=== PATIENT | female | born 1960 | race Caucasian/White ===

== ENCOUNTER 2018-12-22 13:54 | Inpatient (IN) ==
--- NOTE | 2018-12-22 14:17 | PROVIDER DOCUMENTATION ---
HPI-Respiratory General - General Chief Complaint: Shortness of Breath Stated Complaint: COUGHING,CANT HEAR OUT OF RT EAR Time Seen by Provider: 12/22/18 14:14 Source: patient Allergies/Adverse Reactions: Patient Allergies Allergy/AdvReac Type Severity Reaction Status Date / Time No Known Allergies Allergy Verified 08/24/15 05:40 Home Medications: Home Medication List Medication Instructions Recorded Confirmed Last Taken Type Loratadine/Pse E.r. 12 Hr 1 each PO Q12HR #30 tablet 08/24/15 Unknown Rx [Claritin-D 12 Hr] Meclizine HCl [Antivert] 25 mg PO TID PRN #30 tablet 08/24/15 Unknown Rx Ondansetron [Ondansetron Odt] 4 mg PO Q4H PRN PRN #15 tab.rapdis 08/24/15 Unknown Rx - History of Present Illness-Resp Nature of Presenting Problem: reports having the cough and nasal right ear congestion last 2 days. no fever. taken mucinex medicine. in additona she is als having the sob. no history of l terri disease. not on any medication except mucines. associated with tiredness. Review of Systems - Adult - REVIEW OF SYSTEMS - ADULT Constitutional: reports: no symptoms reported Eyes: reports: no symptoms reported Ears, Nose, Mouth & Throat: reports: no symptoms reported Cardiovascular: reports: no symptoms reported Respiratory: reports: no symptoms reported Gastrointestinal: reports: no symptoms reported Genitourinary: reports: no symptoms reported Musculoskeletal: reports: no symptoms reported Integumentary: reports: no symptoms reported Neurological: reports: no symptoms reported Psychiatric: reports: no symptoms reported Endocrine: reports: no symptoms reported Hematologic/Lymphatic: reports: no symptoms reported Allergic/Immunologic: reports: no symptoms reported All Other Systems: Reviewed and Negative Past History - Adult - PAST MEDICAL HISTORY-ADULT Review of Records: reports: Old Records Reviewed, Nursing Assessment Review, Medications Reviewed, Social history reviewed & non-contributory. Major Childhood Illnesses: reports: denies history Cardiovascular: reports: hyperlipidemia Respiratory: reports: denies history Gastrointestinal: reports: denies history Obstetrical/Gynecological: reports: denies history Genitourinary: reports: kidney stones Musculoskeletal: denies: arthritis, chronic pain Neurological: reports: denies history Endocrine/Immune: reports: Diabetes Other Conditions: reports: denies history - PRIOR SURGERIES/PROCEDURES Surgical/Procedure History: reports: appendectomy - PRIOR HOSPITALIZATIONS Prior Hospitalizations: reports: none - IMMUNIZATION STATUS Childhood Immunizations: See Nurse Assessment Flu Vaccine: See Nurse Assessment - FAMILY HISTORY Family History: reviewed, not pertinent Physical Exam-General - PHYSICAL EXAM-ADULT Initial Vital Signs Reviewed: Yes - CONSTITUTIONAL General Appearance: appears well, alert, no apparent distress, other (4L oxygen) - EYES Eyes: PERRL/EOMI, pink conjunctivae - HEAD, EARS, NOSE, MOUTH & THROAT HENMT: other (dry mucous membrane, oral thrush) - NECK Neck: non-tender, full range of motion - RESPIRATORY Respiratory: chest non-tender, normal breath sounds, crackles - CARDIOVASCULAR Cardiovascular: normal peripheral pulses, tachycardia - GASTROINTESTINAL (ABDOMEN) Abdominal Exam: normal bowel sounds, non tender, soft - MUSCULOSKELETAL Back Exam: normal inspection, no CVA tenderness, no vertebral tenderness Extremity: normal range of motion, non-tender, normal gait Peripheral Pulses: radial (R): 2+, radial (L): 2+, dorsalis-pedis (R): 2+, dorsalis-pedis (L): 2+ - SKIN Integumentary: normal color, normal turgor, warm/dry - NEUROLOGIC Neurologic: grossly normal, no motor/sensory deficits - PSYCHIATRIC Psych/Mental Status: normal mood/affect, normal thought content, normal thought process, oriented x 3 Progress - PLAN OF CARE/RESULTS Progress/Plan/Lab Results: Vital Signs - 8 hr 12/22/18 13:59 12/22/18 14:08 12/22/18 14:31 Temperature 98.1 F Pulse Rate 116 H Respiratory Rate 22 Blood Pressure 113/66 123/97 O2 Sat by Pulse Oximetry 86 L 89 L 94 L 12/22/18 15:19 12/22/18 15:20 12/22/18 15:30 Temperature 102.9 F H Pulse Rate 106 H 103 H Respiratory Rate 24 32 H Blood Pressure O2 Sat by Pulse Oximetry 96 91 L 12/22/18 16:00 Temperature Pulse Rate 103 H Respiratory Rate 32 H Blood Pressure O2 Sat by Pulse Oximetry 89 L Laboratory Results - last 24 hr 12/22/18 12/22/18 12/22/18 14:22 14:22 14:22 WBC 11.56 H RBC 5.44 H Hgb 15.3 Hct 45.2 MCV 83.1 MCH 28.1 MCHC 33.8 RDW Std Deviation 13.4 Plt Count 281 MPV 10.4 Immature Gran % (Auto) 0.4 Neut % (Auto) 76.0 H Lymph % (Auto) 12.5 L Mayes % (Auto) 10.7 H Eos % (Auto) 0.1 Baso % (Auto) 0.3 Immature Gran # (Auto) 0.05 H Neut # (Auto) 8.77 H Lymph # (Auto) 1.45 Mayes # (Auto) 1.24 H Eos # (Auto) 0.01 Baso # (Auto) 0.04 PT 13.5 INR 0.96 PTT (Actin FS) 30.5 D-Dimer, Quantitative Specimen Type Sample Site pH pCO2 pO2 HCO3 Base Excess Oxyhemoglobin ABG O2 Sat (Calculated) ABG O2 Saturation ABG Carboxyhemoglobin ABG Methemoglobin Eliseo Test A-a O2 Difference Total Hemoglobin Lactate Liter Flow Blood Gas Modality FiO2 % Sodium 140 Potassium 5.0 Chloride 101 Carbon Dioxide 24 L Anion Gap 15 BUN 17 Creatinine 1.0 H Estimated GFR/1.73 m2 57 BUN/Creatinine Ratio 17 Glucose 169 H Calculated Osmolality 285 Calcium 9.3 Magnesium Total Bilirubin 0.44 AST 16 ALT 15 Alkaline Phosphatase 124 H Creatine Kinase 185 H Creatine Kinase Index 0.5 CK-MB (CK-2) 1.00 Troponin T Wlc-M-Wpybijohccx Pept Total Protein 7.5 Albumin 4.6 Globulin 2.9 Albumin/Globulin Ratio 1.6 Plasma Lactate Urine Source 12/22/18 12/22/18 12/22/18 14:22 14:22 14:22 WBC RBC Hgb Hct MCV MCH MCHC RDW Std Deviation Plt Count MPV Immature Gran % (Auto) Neut % (Auto) Lymph % (Auto) Mayes % (Auto) Eos % (Auto) Baso % (Auto) Immature Gran # (Auto) Neut # (Auto) Lymph # (Auto) Mayes # (Auto) Eos # (Auto) Baso # (Auto) PT INR PTT (Actin FS) D-Dimer, Quantitative Specimen Type Sample Site pH pCO2 pO2 HCO3 Base Excess Oxyhemoglobin ABG O2 Sat (Calculated) ABG O2 Saturation ABG Carboxyhemoglobin ABG Methemoglobin Eliseo Test A-a O2 Difference Total Hemoglobin Lactate Liter Flow Blood Gas Modality FiO2 % Sodium Potassium Chloride Carbon Dioxide Anion Gap BUN Creatinine Estimated GFR/1.73 m2 BUN/Creatinine Ratio Glucose Calculated Osmolality Calcium Magnesium Total Bilirubin AST ALT Alkaline Phosphatase Creatine Kinase Creatine Kinase Index CK-MB (CK-2) Troponin T < 0.010 Mxo-B-Pttrdxpyoeb Pept 67 Total Protein Albumin Globulin Albumin/Globulin Ratio Plasma Lactate 1.3 Urine Source 12/22/18 12/22/18 12/22/18 14:22 14:22 14:56 WBC RBC Hgb Hct MCV MCH MCHC RDW Std Deviation Plt Count MPV Immature Gran % (Auto) Neut % (Auto) Lymph % (Auto) Mayes % (Auto) Eos % (Auto) Baso % (Auto) Immature Gran # (Auto) Neut # (Auto) Lymph # (Auto) Mayes # (Auto) Eos # (Auto) Baso # (Auto) PT INR PTT (Actin FS) D-Dimer, Quantitative 0.42 Specimen Type ARTERIAL Sample Site L BRACHIAL pH 7.43 pCO2 34 L pO2 54 L HCO3 23.8 Base Excess -1.1 Oxyhemoglobin 88.3 L* ABG O2 Sat (Calculated) 18.5 ABG O2 Saturation 92.6 L ABG Carboxyhemoglobin 2.60 H ABG Methemoglobin 2.0 H Eliseo Test YES A-a O2 Difference 160.0 Total Hemoglobin 14.9 Lactate 0.80 Liter Flow 4.0 Blood Gas Modality CANNULA FiO2 % 36.0 Sodium Potassium Chloride Carbon Dioxide Anion Gap BUN Creatinine Estimated GFR/1.73 m2 BUN/Creatinine Ratio Glucose Calculated Osmolality Calcium Magnesium 1.9 Total Bilirubin AST ALT Alkaline Phosphatase Creatine Kinase Creatine Kinase Index CK-MB (CK-2) Troponin T Mme-U-Zobpigyfemm Pept Total Protein Albumin Globulin Albumin/Globulin Ratio Plasma Lactate Urine Source 12/22/18 15:42 WBC RBC Hgb Hct MCV MCH MCHC RDW Std Deviation Plt Count MPV Immature Gran % (Auto) Neut % (Auto) Lymph % (Auto) Mayes % (Auto) Eos % (Auto) Baso % (Auto) Immature Gran # (Auto) Neut # (Auto) Lymph # (Auto) Mayes # (Auto) Eos # (Auto) Baso # (Auto) PT INR PTT (Actin FS) D-Dimer, Quantitative Specimen Type Sample Site pH pCO2 pO2 HCO3 Base Excess Oxyhemoglobin ABG O2 Sat (Calculated) ABG O2 Saturation ABG Carboxyhemoglobin ABG Methemoglobin Eliseo Test A-a O2 Difference Total Hemoglobin Lactate Liter Flow Blood Gas Modality FiO2 % Sodium Potassium Chloride Carbon Dioxide Anion Gap BUN Creatinine Estimated GFR/1.73 m2 BUN/Creatinine Ratio Glucose Calculated Osmolality Calcium Magnesium Total Bilirubin AST ALT Alkaline Phosphatase Creatine Kinase Creatine Kinase Index CK-MB (CK-2) Troponin T Rky-Z-Rbrcqywgeyf Pept Total Protein Albumin Globulin Albumin/Globulin Ratio Plasma Lactate Urine Source CLEAN CATCH Orders Category Date Time Status Cardiac Monitoring DIRECTED Care 12/22/18 14:02 Active IV Insertion ORDERED Care 12/22/18 14:02 Completed Notify MD of + Sepsis Screen NOW Care 12/22/18 14:02 Active Notify Physician As Ordered Care 12/22/18 14:02 Active Oxygen Therapy- ED Nursing DIRECTED Care 12/22/18 14:28 Active Saline Loc NOW Care 12/22/18 14:28 Active CHEST-1 VIEW [RAD] Stat Exams 12/22/18 14:02 Completed ABG [RESP] Routine Lab 12/22/18 14:56 Completed BLOOD CULTURE [BLDCUL] Stat Lab 12/22/18 14:22 Results BNP [PRO B-NATRIURETIC PEPTIDE] Stat Lab 12/22/18 14:22 Completed CBC WITH DIFF [HEME] Stat Lab 12/22/18 14:22 Completed CK PROFILE [SP CHEM] Stat Lab 12/22/18 14:22 Completed COMPREHENSIVE METABOLIC PANEL [CHEM] Stat Lab 12/22/18 14:22 Completed D-DIMER [COAG] Stat Lab 12/22/18 14:22 Completed LACTATE, PLASMA [CHEM] Lab 12/22/18 17:15 Uncollected LACTATE, PLASMA [CHEM] Lab 12/22/18 20:15 Uncollected LACTATE, PLASMA [CHEM] Q3H Lab 12/22/18 14:22 Completed MAGNESIUM [CHEM] Stat Lab 12/22/18 14:22 Completed PROTIME WITH INR [COAG] Stat Lab 12/22/18 14:22 Completed PTT [COAG] Stat Lab 12/22/18 14:22 Completed TROPONIN T Stat Lab 12/22/18 14:22 Completed URINALYSIS W/POSS RFLX CULT [URINALYSIS] Stat Lab 12/22/18 15:42 Results 0.9% Sodium Chloride Inj [Ns] 1,000 ml Med 12/22/18 15:55 Active IV 250 mls/hr Acetaminophen [Tylenol] Med 12/22/18 15:25 Discontinued 500 mg PO NOW ONE Aspirin Med 12/22/18 14:27 Discontinued 325 mg PO NOW ONE Fluconazole [Diflucan] Med 12/22/18 16:11 Discontinued 200 mg PO NOW ONE BIPAP Stat Oth 12/22/18 15:16 Active CP/SOB/Palp >45 yrs of Age Stat Oth 12/22/18 14:27 Ordered Oxygen Device Stat Oth 12/22/18 14:02 Active EKG [EKG] Stat Ther 12/22/18 14:03 Ordered Result Diagrams: 12/22/18 14:22 12/22/18 14:22 - REASSESSMENT Reassessment #1 Time Reassessed: 15:27 (hypoxemia, tachycardia, pulmonary edema, will add bibap to increase oxygen level. will order dimer to screen for possible v/q mismatch) - CONSULTS/PCP/HOSPITALIST Notification #1 *Consult/PCP/Hospitalist*: Dr. Granda Time Discussed: 16:29 Consult Disposition: Admit (to [facility]) Departure - Departure Date of Disposition Decision: 12/22/18 Time of Disposition Decision: 16:29 DIAGNOSIS: Oral candidiasis, Hypoxemia, Pulmonary edema, TERRIE (acute kidney injury) Disposition: ADMITTED INPATIENT 09 Certified Medical Emergency: Emergent Condition: Stable Referrals and Follow-Ups: Tiff Granda MD [Primary Care Provider] - - Critical Care Note This patient required my direct & personal management of CC.: No Attestation - Physician/ TATIANA Attestation The physician spent face to face time with patient:: Yes Advanced Practice Provider documentation review:: Supervising physician onsite and consulted in the evaluation and care of this patient. The physician did have a face to face encounter with the patient.
[2018-12-22] MEDS ORDERED: ASPIRIN PO ONE (14:27)
--- NOTE | 2018-12-22 14:32 | Diag Imaging Result Doc PS360 ---
EXAM: CHEST-1 VIEW HISTORY: POSSIBLE SEPSIS TECHNIQUE: Chest single view COMPARISON: 06/11/2014 FINDINGS: The lungs are well expanded. The heart is mildly enlarged. The vessels are mildly distended. There are no infiltrates. No effusion identified. IMPRESSION: Mild pulmonary edema Electronically signed by Desmond Flores 12/22/2018 2:30 PM
[2018-12-22 14:52] LABS: BASO# 0.04 X1000 (0.0-0.2); BASO% 0.3 % (0.0-0.8); EOS# 0.01 X1000 (0.0-0.7); EOS% 0.1 % (0.0-10.0); HEMATOCRIT 45.2 % (37.0-47.0); HEMOGLOBIN 15.3 g/dL (12.0-16.0); IMM GRAN# 0.05 X1000 (0.0-0.04); IMM GRAN% 0.4 % (0.0-0.5); LYMPH# 1.45 X1000 (1.2-3.4); LYMPH% 12.5 % (20.5-51.1); MCH 28.1 PG (27-31); MCHC 33.8 g/dL (33-37); MCV 83.1 FL (81-99); MONO# 1.24 X1000 (0.11-0.59); MONO% 10.7 % (1.7-9.3); MPV 10.4 FL (7.4-10.4); NEUT# 8.77 X1000 (1.4-6.5); PLT 281 X1000 (130-400); RBC 5.44 XMIL (4.2-5.4); RDW 13.4 % (11.5-14.5); WBC 11.56 X1000 (4.8-10.8)
[2018-12-22 15:03] LABS: INR 0.96; PROTIME 13.5 Seconds (11.0-16.0)
[2018-12-22 15:04] LABS: PTT 30.5 Seconds (22.3-41.8)
[2018-12-22 15:05] LABS: ALLEN TEST YES; BE -1.1 mmoll (-3.0-3.0); BLOOD TYPE ARTERIAL; HCO3-(ACT) 23.8 mmoll (20.0-26.0); O2(CT) 18.5 mL/dL (15.0-23.0); PCO2(98.6) 34 mmHg (35-45); PO2(98.6) 54 mmHg (60-100); SAMPLE BLOOD; SAO2 92.6 % (95.0-100.0); THB 14.9 g/dL (11.5-17.4); pH(98.6) 7.43 (7.35-7.45)
[2018-12-22 15:06] LABS: MODALITY CANNULA; O2HB 88.3 % (95.0-99.0)
[2018-12-22 15:23] LABS: ALB/GLOB RATIO 1.6; ALBUMIN 4.6 g/dL (3.5-5.0); CALCIUM 9.3 mg/dL (8.8-10.2); TOTAL BILIRUBIN 0.44 mg/dL (0.20-1.00); TOTAL PROTEIN 7.5 g/dL (6.3-8.3)
[2018-12-22] MEDS ORDERED: TYLENOL PO ONE (15:25)
[2018-12-22 15:45] LABS: CK INDEX 0.5 (0.0-2.5)
[2018-12-22] MEDS ORDERED: NS 1,000 ML IV ONE (15:55)
[2018-12-22] MEDS ORDERED: DIFLUCAN PO ONE (16:11)
[2018-12-22 16:21] LABS: URINE SOURCE CLEAN CATCH
[2018-12-22 16:29] LABS: BILIRUBIN URINE NEGATIVE (NEGATIVE); BLOOD URINE TRACE (NEGATIVE); COLOR YELLOW; GLUCOSE URINE TRACE mg/dL (NEGATIVE); KETONE URINE 10 mg/dL (NEGATIVE); LEUKOCYTES URINE NEGATIVE (NEGATIVE); NITRITE URINE NEGATIVE (NEGATIVE); PROTEIN URINE 200 mg/dL (NEGATIVE); SP GRAVITY URINE 1.024; TURBIDITY URINE CLEAR (CLEAR); UROBILINOGEN URINE 2 mg/dL (NORMAL)
[2018-12-22 16:30] LABS: UR EPITHELIAL CELLS <10 /HPF (<10); URINE BACTERIA NEGATIVE /HPF; URINE RBC <10 /HPF (<10); URINE WBC <10 /HPF (<10)
[2018-12-22] MEDS ORDERED: ROCEPHIN 1 GM in NS 50 ML IV ONE (17:19)
--- NOTE | 2018-12-22 18:22 | ED EKG INTERP ---
This chart was entered by Jazlyn Gutierrez Scribe, acting as scribe for Savannah Mazariegos MD. EKG Interpretation - EKG Time of EKG reading by physician:: 14:10 EKG Read and Signed by:: Savannah Mazariegos EKG Interpretation (*Must complete 3 of following elements*): Abnormal Rate: 106 Rhythm: Sinus tach [place]: normal QRS: normal CO Interval: normal ST Wave: non-specific ST changes Attestation - Physician/ TATIANA Attestation Patient care was provided by Advanced Practice Provider:: No The physician spent face to face time with patient:: Yes Advanced Practice Provider documentation review:: Supervising physician onsite and consulted in the evaluation and care of this patient. The physician did have a face to face encounter with the patient. This chart was documented by the indicated scribe, (Jazlyn Gutierrez Scribe) and accurately reflects the services I performed and decisions made by me, Savannah Mazariegos MD, as attested by the provider's signature.
[2018-12-22] MEDS: LEVAQUIN 500 MG/D5W 500 MG/100 ML IVPB IV SCH (18:41)
[2018-12-22] MEDS: LOVENOX SUBQ SCH (18:41)
[2018-12-22] MEDS: NS 1,000 ML IV SCH (18:42)
[2018-12-22] MEDS: PEPCID IV SCH (18:44)
[2018-12-22] MEDS: ROBITUSSIN-DM PO PRN (19:13)
--- NOTE | 2018-12-22 19:44 | HISTORY AND PHYSICAL ---
CHIEF COMPLAINT: Shortness of breath, cough, wheezing. HISTORY OF PRESENT ILLNESS: She is a 58-year-old white female. She was not seen in my office for a while. She has been under workman's compensation injury since September. The patient has had multiple surgeries; injuries to the left knee, left elbow, right shoulder. Anyhow, she is still smoking. She was very hypoxic, placed on BiPAP. No chest pain. No pedal edema. Basically admitted to the hospital for acute COPD exacerbation with hypoxemia. She also has borderline blood sugar. Oral thrush noted. For all these reasons, she has been admitted in [facility] for further workup. I did see the chest x-ray, ER workup. Currently the patient is off BiPAP in the [facility]. The patient is not in respiratory distress. PAST MEDICAL HISTORY: Acid reflux disease, hyperlipidemia, glucose intolerance, metabolic syndrome, kidney stones. PAST SURGICAL HISTORY: Breast lumpectomy, benign, on the left side; appendectomy; complete hysterectomy; laparotomy, cystocele repair; right shoulder replacement; left elbow surgery; left knee replacement. ALLERGIES: Not known. MEDICATIONS: In my office, supposed to take medicines are Prilosec 40 daily, niacin 500 two tablets daily, metformin 500 daily, gabapentin 300 t.i.d. SOCIAL HISTORY: Lives in [place]. Continues to smoke. No alcohol. Working for [employer]. Single with one child. FAMILY HISTORY: Father of MVA at 43. Mother of Alzheimer disease and diabetes. HEALTH MAINTENANCE: Not up-to-date. Last mammography 2013. REVIEW OF SYSTEMS: HEENT: No headache, no vision problem. No earache. No sore throat. Rash on the mouth. No neck pain. Cardiopulmonary: Shortness of breath, cough and wheezing. No PND. No orthopnea. No swelling of legs. GI: No nausea, vomiting, abdominal pain. : No history of hesitancy, frequency or dysuria. No focal symptoms or weakness. PHYSICAL EXAMINATION: VITAL SIGNS: Temperature is low-grade fever, pulse 94, blood pressure is 144/71. Five feet 4 inches, 180 pounds. HEENT: Atraumatic, normocephalic. Pupils equal, reactive to light. Oral thrush noted. TMs are normal. Nose and throat congested. Postnasal drainage. NECK: Supple. No lymphadenopathy. CHEST: Bilateral air entry, wheezing. HEART: Distant heart sounds. BREASTS: Exam deferred. ABDOMEN: Belly is soft, nontender. Good bowel sounds. Midline abdominal scar present. EXTREMITIES: Left knee scar present. No peripheral edema. No signs of gangrene. NEUROLOGIC: No obvious neurological deficits. LABORATORY DATA: CBC: White cell count 11.5, hematocrit 45, platelets 281,000. PT/INR is normal. D-dimer is normal. ABG: PH is 7.43, pCO2 is 34, pO2 is 54, bicarbonate 23.8, oxyhemoglobin 88.3, carboxyhemoglobin 2.6 on 36%. SMA 7 is normal. Sugar is 169. CK was high, but MB index, troponin and proBNP were normal. Plasma lactate was normal. DIAGNOSTIC DATA: Chest x-ray: Borderline cardiomegaly. Stable chest. No infiltrates. ASSESSMENT AND PLAN: 1. A 58-year-old white female admitted to the hospital with acute chronic obstructive pulmonary disease exacerbation. Plan is oxygen as needed, bronchodilators. We will start with Levaquin and ceftriaxone. We will use judicious use of steroids. 2. Deep venous thrombosis and gastrointestinal prophylaxis with Lovenox and Pepcid. 3. Oral thrush. Intravenous Diflucan. 4. Intravenous fluids. 5. ProBNP, D-dimers were normal. We will check the electrocardiogram in the morning. Gentle hydration. 6. Glucose intolerance. We will follow up on A1c. Sliding scale with insulin coverage. 7. Nicotine cessation programs. 8. Initiate vaccination protocol prior to the discharge. Follow up. cc: David Granda MD
[2018-12-22] MEDS: HUMULIN R SUBQ SCH (21:34)
[2018-12-22] MEDS: NICODERM PATCH TD SCH (22:23)
[2018-12-22] MEDS: TESSALON PO PRN (22:23)
[2018-12-22] MEDS: TYLENOL PO PRN (22:23)
[2018-12-22] MEDS: ZOFRAN IV PRN (22:28)
[2018-12-23] MEDS: ROBITUSSIN-DM PO PRN ×2 (00:52→09:03)
[2018-12-23] MEDS: NS 1,000 ML IV SCH ×4 (03:32→21:32)
[2018-12-23 03:39] LABS: ALLEN TEST YES; BE -2.6 mmoll (-3.0-3.0); BLOOD TYPE ARTERIAL; HCO3-(ACT) 22.7 mmoll (20.0-26.0); METHB 2.1 % (0.0-1.5); O2(CT) 17.5 mL/dL (15.0-23.0); PCO2(98.6) 43 mmHg (35-45); PO2(98.6) 59 mmHg (60-100); SAMPLE BLOOD; THB 13.9 g/dL (11.5-17.4); pH(98.6) 7.34 (7.35-7.45)
[2018-12-23 03:46] LABS: MODALITY CANNULA
[2018-12-23 03:47] LABS: O2HB 89.5 % (95.0-99.0)
[2018-12-23] MEDS: ZOFRAN IV PRN ×3 (05:04→22:38)
[2018-12-23 05:55] LABS: BASO# 0.03 X1000 (0.0-0.2); BASO% 0.3 % (0.0-0.8); EOS# 0.01 X1000 (0.0-0.7); EOS% 0.1 % (0.0-10.0); HEMATOCRIT 41.7 % (37.0-47.0); IMM GRAN# 0.04 X1000 (0.0-0.04); IMM GRAN% 0.4 % (0.0-0.5); LYMPH# 1.99 X1000 (1.2-3.4); LYMPH% 20.3 % (20.5-51.1); MCH 28.4 PG (27-31); MCHC 33.6 g/dL (33-37); MCV 84.6 FL (81-99); MONO# 1.16 X1000 (0.11-0.59); MONO% 11.8 % (1.7-9.3); MPV 10.2 FL (7.4-10.4); NEUT# 6.58 X1000 (1.4-6.5); NEUT% 67.1 % (42.2-75.2); PLT 243 X1000 (130-400); RBC 4.93 XMIL (4.2-5.4); RDW 13.5 % (11.5-14.5); WBC 9.81 X1000 (4.8-10.8)
[2018-12-23] MEDS: PEPCID IV SCH ×2 (06:18→18:15)
[2018-12-23] MEDS: TESSALON PO PRN ×3 (06:18→22:38)
[2018-12-23] MEDS: HUMULIN R SUBQ SCH ×4 (06:19→20:55)
[2018-12-23 06:38] LABS: HEMOGLOBIN A1C 8.2 % (4.8-6.0)
[2018-12-23 06:47] LABS: AGAP 11; BUN 18 mg/dL (8-22); CALCIUM 8.7 mg/dL (8.8-10.2); CHLORIDE 104 mmol/L (98-107); CK PROFILE 250 U/L (24-173); COSMO 281; CREATININE 0.8 mg/dL (0.5-0.9); ESTIMATED GFR > 60; GLUCOSE 134 mg/dL (70-104); POTASSIUM 4.1 mmol/L (3.5-5.1); SODIUM 139 mmol/L (136-145); TCO2 24 mmol/L (25-35)
[2018-12-23 08:22] LABS: CK INDEX 0.9 (0.0-2.5); CK-MB 2.35 ng/mL (0.0-5.0)
[2018-12-23] MEDS: NICODERM PATCH TD SCH (09:01)
[2018-12-23] MEDS: DUONEB (A & A) INH PRN ×2 (09:22→16:17)
[2018-12-23] MEDS ORDERED: BREO ELLIPTA 100/25 MCG INH INH ONE (12:47)
--- NOTE | 2018-12-23 14:29 | PROGRESS NOTE ---
DATE: 12/23/2018 SUBJECTIVE: The patient is still shortness of breath. No chest pain. Blood sugars are running high. She has oral thrush. EXAMINATION: Vital Signs: Temp Is 98, pulse is 92, blood pressure is stable. HEENT: Oral thrush. Crackles on the left side of the chest. Heart: Sounds are regular. Abdomen: Belly is soft, obese. Neurologic: No neurological deficits noted. LABORATORY: CBC: White cell count 9, hematocrit 41, platelets 243,000 ABG: pH is 7.34, pCO2 43, PO2 59, on 40%. SMA-7 is normal. A1c 8.2. Cardiac enzymes were normal. D-dimer is normal. ASSESSMENT AND PLAN: 1. Acute COPD exacerbation with possible pneumonia on the left upper lobe and repeat the chest x- ray. Currently receiving the antibiotics with Levaquin oxygen, bronchodilators. I am going to Add Breo and Spiriva. 2. Oral thrush, IV Diflucan. 3. Cough. She is on Robitussin DM and Tessalon Perles as directed. 4. DVT and GI prophylaxis as per order sheet. 5. Type 2 diabetes. We will start on metformin along with B12 tablets. 6. Multiple workman's comp injury, stable. 7. Tobacco abuse. Quit smoking. 8. Decrease IV fluids 50 mL/h and then repeat the chest x-ray in the morning. LEVEL OF DOCUMENTATION: 25 minutes. cc: David Granda MD
[2018-12-23] MEDS: ROCEPHIN 1 GM in NS 50 ML IV SCH ×2 (16:25→17:34)
[2018-12-23] MEDS: TYLENOL PO PRN (16:26)
[2018-12-23] MEDS: GLUCOPHAGE PO SCH (16:26)
[2018-12-23] MEDS: LEVAQUIN 500 MG/D5W 500 MG/100 ML IVPB IV SCH (18:15)
[2018-12-23] MEDS: DIFLUCAN 100 MG/NS 100 MG/50 ML IVPB IV SCH (18:15)
[2018-12-23] MEDS: LOVENOX SUBQ SCH (18:15)
[2018-12-24 05:04] LABS: ALLEN TEST YES; BE -2.4 mmoll (-3.0-3.0); BLOOD TYPE ARTERIAL; O2HB 95.1 % (95.0-99.0); PCO2(98.6) 42 mmHg (35-45); PO2(98.6) 89 mmHg (60-100); SAMPLE BLOOD; SAO2 98.4 % (95.0-100.0); THB 16.4 g/dL (11.5-17.4); pH(98.6) 7.35 (7.35-7.45)
[2018-12-24 05:05] LABS: MODALITY VENTIMASK
[2018-12-24] MEDS: PEPCID IV SCH ×2 (05:56→18:18)
[2018-12-24] MEDS: TYLENOL PO PRN ×2 (05:56→16:40)
[2018-12-24] MEDS: NS 1,000 ML IV SCH ×2 (06:14→21:25)
[2018-12-24] MEDS: TESSALON PO PRN (06:19)
[2018-12-24] MEDS: HUMULIN R SUBQ SCH ×4 (06:19→21:27)
[2018-12-24] MEDS: DUONEB (A & A) INH PRN ×2 (08:14→15:13)
[2018-12-24] MEDS: BREO ELLIPTA 100/25 MCG INH INH SCH (08:14)
[2018-12-24] MEDS: SPIRIVA INH SCH (08:14)
--- NOTE | 2018-12-24 08:15 | Diag Imaging Result Doc PS360 ---
EXAM: CHEST-2 VIEWS HISTORY: hypoxia TECHNIQUE: Chest two views COMPARISON: 12/22/2018 FINDINGS: The lungs are well expanded. The heart is not enlarged. The vessels are mildly distended. There are infiltrates in the right lung on the current exam. No pleural effusions. IMPRESSION: Interval worsening with infiltrates in the right lung and mild pulmonary edema. Electronically signed by Desmond Flores 12/24/2018 8:12 AM
[2018-12-24] MEDS: NICODERM PATCH TD SCH (09:06)
[2018-12-24] MEDS: GLUCOPHAGE PO SCH ×2 (09:06→16:39)
[2018-12-24] MEDS: ROBITUSSIN-AC PO PRN ×2 (09:47→20:01)
--- NOTE | 2018-12-24 10:45 | PROGRESS NOTE ---
DATE: 12/24/2018 Ms Wills, who is a 58-year-old white female, is admitted with pneumonia. X-ray of the right lung shows worsening of the pneumonia. There is some congestion on the chest. Her vital signs, however, are stable. She is on Levaquin as well as Rocephin and arterial blood gases are satisfactory. She has persistent cough. The Tessalon Perles and Robitussin DM are not working. We will start with some guaifenesin and codeine. Overall, condition is otherwise unchanged. -0 cc: MD David Santana MD
[2018-12-24] MEDS: ZOFRAN IV PRN ×2 (13:45→20:01)
[2018-12-24] MEDS: ROCEPHIN 1 GM in NS 50 ML IV SCH (16:39)
[2018-12-24] MEDS: DIFLUCAN 100 MG/NS 100 MG/50 ML IVPB IV SCH (17:46)
[2018-12-24] MEDS: LEVAQUIN 500 MG/D5W 500 MG/100 ML IVPB IV SCH (18:17)
[2018-12-24] MEDS: LOVENOX SUBQ SCH (18:18)
[2018-12-24] MEDS: PHENERGAN IV PRN (21:25)
[2018-12-24] MEDS: SODIUM CHLORIDE 0.9% INJ PRN (21:25)
[2018-12-25] MEDS: NS 1,000 ML IV SCH ×4 (03:24→23:30)
[2018-12-25] MEDS: PEPCID IV SCH ×2 (06:41→18:13)
[2018-12-25] MEDS: SODIUM CHLORIDE 0.9% INJ SCH ×2 (06:42→18:16)
[2018-12-25] MEDS: HUMULIN R SUBQ SCH ×4 (06:44→20:45)
--- NOTE | 2018-12-25 07:33 | EKG Report ---
Test Performed on : 12/23/2018 06:17:04 AM Test Reason : cp Blood Pressure : / mmHG Vent. Rate : 080 BPM Atrial Rate : 080 BPM P-R Int : 132 ms QRS Dur : 088 ms QT Int : 388 ms P-R-T Axes : 067 040 033 degrees QTc Int : 447 ms Normal sinus rhythm. Normal ECG When compared with ECG of 22-DEC-2018 14:10, (Unconfirmed) No significant change was found Confirmed by Yoan GREENE, Laurent Escobedo ([id number]) on 12/25/2018 12:41:35 PM
--- NOTE | 2018-12-25 07:44 | EKG Report ---
Test Performed on : 12/22/2018 2:10:14 PM Test Reason : TACHYCARDIA, SOB Blood Pressure : / mmHG Vent. Rate : 106 BPM Atrial Rate : 106 BPM P-R Int : 124 ms QRS Dur : 086 ms QT Int : 350 ms P-R-T Axes : 060 042 032 degrees QTc Int : 464 ms Sinus tachycardia. Nonspecific ST abnormality Abnormal ECG When compared with ECG of 24-AUG-2015 05:53, No significant change was found Unconfirmed Result
[2018-12-25] MEDS: SOLU-MEDROL IV SCH (08:59)
[2018-12-25] MEDS: NICODERM PATCH TD SCH (08:59)
[2018-12-25] MEDS: GLUCOPHAGE PO SCH ×2 (08:59→17:23)
[2018-12-25] MEDS: MUCINEX PO SCH ×2 (08:59→20:45)
[2018-12-25] MEDS: BREO ELLIPTA 100/25 MCG INH INH SCH (09:36)
[2018-12-25] MEDS: DUONEB (A & A) INH PRN ×3 (09:36→20:58)
[2018-12-25] MEDS: SPIRIVA INH SCH (09:36)
[2018-12-25] MEDS: ZOFRAN IV PRN (15:42)
[2018-12-25] MEDS: TESSALON PO PRN (16:29)
[2018-12-25] MEDS: ROCEPHIN 1 GM in NS 50 ML IV SCH (17:23)
[2018-12-25] MEDS: LOVENOX SUBQ SCH (18:13)
[2018-12-25] MEDS: DIFLUCAN 100 MG/NS 100 MG/50 ML IVPB IV SCH (18:13)
[2018-12-25] MEDS: LEVAQUIN 500 MG/D5W 500 MG/100 ML IVPB IV SCH (18:48)
[2018-12-25] MEDS: PHENERGAN IV PRN (20:46)
[2018-12-25] MEDS: SODIUM CHLORIDE 0.9% INJ PRN (20:46)
--- NOTE | 2018-12-25 21:33 | PROGRESS NOTE ---
DATE: 12/25/2018 SUBJECTIVE: The patient is not getting any better. Still productive cough, chest x-ray, right upper lobe infiltrate and oral thrush is improving. OBJECTIVE: Vital Signs: Temp 99.2, pulse 73, blood pressure 146/80. HEENT: On Ventimask, coughing. It is a productive cough and crackles on both sides of the chest. Heart: Heart sounds are very distant. Abdomen: Belly is soft, nontender. INVESTIGATIONS: None reported. ABG yesterday: pH is 7.35, pCO2 42, PO2 89. Blood sugars are better and blood cultures are negative. ASSESSMENT AND PLAN: 1. Acute chronic obstructive pulmonary disease exacerbation with pneumonia and currently receiving Levaquin, ceftriaxone. Continue bronchodilators. Added on Mucinex DM and IV steroids. 2. Oral thrush. IV Diflucan. 3. Type 2 diabetes and metformin. 4. DVT and GI prophylaxis as per order sheet. 5. Will check the labs in the morning as well as chest x-ray and blood gas. LEVEL OF DOCUMENTATION: 25 minutes. cc: David Granda MD
[2018-12-26] MEDS: DUONEB (A & A) INH PRN ×4 (03:56→21:34)
[2018-12-26] MEDS: ZOFRAN IV PRN ×2 (04:23→11:01)
[2018-12-26] MEDS: PEPCID IV SCH ×2 (05:41→20:45)
[2018-12-26] MEDS: HUMULIN R SUBQ SCH ×4 (05:59→21:21)
[2018-12-26 06:29] LABS: BASO# 0.03 X1000 (0.0-0.2); BASO% 0.3 % (0.0-0.8); HEMATOCRIT 36.5 % (37.0-47.0); HEMOGLOBIN 12.2 g/dL (12.0-16.0); IMM GRAN# 0.05 X1000 (0.0-0.04); IMM GRAN% 0.5 % (0.0-0.5); LYMPH# 1.22 X1000 (1.2-3.4); LYMPH% 11.3 % (20.5-51.1); MCH 27.9 PG (27-31); MCHC 33.4 g/dL (33-37); MCV 83.5 FL (81-99); MONO# 0.95 X1000 (0.11-0.59); MONO% 8.8 % (1.7-9.3); MPV 10.8 FL (7.4-10.4); NEUT# 8.58 X1000 (1.4-6.5); NEUT% 79.1 % (42.2-75.2); PLT 293 X1000 (130-400); RBC 4.37 XMIL (4.2-5.4); RDW 12.6 % (11.5-14.5); WBC 10.83 X1000 (4.8-10.8)
[2018-12-26 07:01] LABS: AGAP 10; BUN 12 mg/dL (8-22); CALCIUM 9.3 mg/dL (8.8-10.2); CHLORIDE 104 mmol/L (98-107); COSMO 287; CREATININE 0.6 mg/dL (0.5-0.9); ESTIMATED GFR > 60; GLUCOSE 165 mg/dL (70-104); POTASSIUM 4.2 mmol/L (3.5-5.1); SODIUM 142 mmol/L (136-145); TCO2 28 mmol/L (25-35)
--- NOTE | 2018-12-26 08:45 | Diag Imaging Result Doc PS360 ---
EXAM: CHEST-2 VIEWS HISTORY: hypoxia TECHNIQUE: Chest two views COMPARISON: 12/24/2018 FINDINGS: The lungs are well expanded. The heart is mildly enlarged. There are small bilateral infiltrates. These are less pronounced than on the prior study. No pleural effusions. Prominent degenerative bone spurring in the lower thoracic spine. IMPRESSION: Overall interval improvement. Electronically signed by Desmond Flores 12/26/2018 8:43 AM
[2018-12-26] MEDS: GLUCOPHAGE PO SCH ×2 (09:21→16:57)
[2018-12-26] MEDS: NICODERM PATCH TD SCH (09:21)
[2018-12-26] MEDS: SOLU-MEDROL IV SCH (09:21)
[2018-12-26] MEDS: SPIRIVA INH SCH (09:36)
[2018-12-26] MEDS: BREO ELLIPTA 100/25 MCG INH INH SCH (09:36)
[2018-12-26] MEDS: MUCINEX PO SCH ×2 (10:03→20:45)
[2018-12-26] MEDS: TESSALON PO PRN (11:06)
[2018-12-26] MEDS: ROBITUSSIN-AC PO PRN (15:37)
[2018-12-26] MEDS: ROCEPHIN 1 GM in NS 50 ML IV SCH (16:57)
--- NOTE | 2018-12-26 19:52 | PROGRESS NOTE ---
DATE: 12/26/2018 SUBJECTIVE: The patient is slowly improving. Decreased cough and shortness of breath. OBJECTIVE: Temperature is 98 degrees. Vitals are stable. Oral thrush is better. Decreased rhonchi on the right side of the chest. Heart sounds are regular. Belly is soft and nontender. No obvious deficits. INVESTIGATIONS: CBC: White cell count 10, hematocrit 36, and platelets 293,000. Sodium 142, potassium 4.2, chloride 104, BUN 12, creatinine 0.6 and glucose 161. ASSESSMENT AND PLAN: 1. Acute chronic obstructive pulmonary disease exacerbation with pneumonia, improving. Continue on present treatment with IV steroids, IV ceftriaxone on Levaquin bronchodilators. 2. Oral thrush is better. 3. Diabetes. Continue on metformin. Repeat the labs in the morning. Slowly wean off oxygen. LEVEL OF DOCUMENTATION: 25 minutes. cc: David Granda MD
[2018-12-26] MEDS: DIFLUCAN 100 MG/NS 100 MG/50 ML IVPB IV SCH (20:44)
[2018-12-26] MEDS: LEVAQUIN 500 MG/D5W 500 MG/100 ML IVPB IV SCH (20:45)
[2018-12-26] MEDS: LOVENOX SUBQ SCH (20:45)
[2018-12-27] MEDS: ZOFRAN IV PRN ×2 (00:37→20:38)
[2018-12-27 06:03] LABS: CHOLESTEROL 147 mg/dL (0-200); CK PROFILE 45 U/L (24-173); HDL 25 mg/dL (45-65); LDL 83 mg/dL; TRIGLYCERIDES 197 mg/dL (35-135); VLDL 39 mg/dL
[2018-12-27] MEDS: HUMULIN R SUBQ SCH ×4 (06:33→20:38)
[2018-12-27 06:35] LABS: FREE T4 1.14 ng/dL (0.93-1.70); TSH 1.03 uIUmL (0.27-4.20)
[2018-12-27] MEDS: GLUCOPHAGE PO SCH ×2 (08:15→16:51)
[2018-12-27] MEDS: SOLU-MEDROL IV SCH (08:15)
[2018-12-27] MEDS: MUCINEX PO SCH ×2 (08:15→20:38)
[2018-12-27] MEDS: NICODERM PATCH TD SCH (08:15)
[2018-12-27] MEDS: PEPCID IV SCH ×2 (08:16→20:38)
[2018-12-27] MEDS: BREO ELLIPTA 100/25 MCG INH INH SCH (09:46)
[2018-12-27] MEDS: SPIRIVA INH SCH (09:46)
[2018-12-27] MEDS: DUONEB (A & A) INH PRN ×2 (09:46→16:06)
[2018-12-27 13:49] LABS: ALLEN TEST NO; BLOOD TYPE ARTERIAL; HCO3-(ACT) 26.1 mmoll (20.0-26.0); METHB 2.1 % (0.0-1.5); O2(CT) 16.7 mL/dL (15.0-23.0); PCO2(98.6) 36 mmHg (35-45); PO2(98.6) 50 mmHg (60-100); SAMPLE BLOOD; THB 14.1 g/dL (11.5-17.4); pH(98.6) 7.46 (7.35-7.45)
[2018-12-27 13:52] LABS: O2HB 84.6 % (95.0-99.0)
[2018-12-27] MEDS: DIFLUCAN 100 MG/NS 100 MG/50 ML IVPB IV SCH ×2 (16:51→18:23)
[2018-12-27] MEDS: TESSALON PO PRN (16:51)
[2018-12-27] MEDS: ROCEPHIN 1 GM in NS 50 ML IV SCH (16:51)
[2018-12-27] MEDS: LEVAQUIN 500 MG/D5W 500 MG/100 ML IVPB IV SCH ×2 (16:52→18:23)
[2018-12-27] MEDS: LOVENOX SUBQ SCH (20:38)
--- NOTE | 2018-12-27 21:34 | PROGRESS NOTE ---
DATE: 12/27/2018 SUBJECTIVE: The patient is feeling a little better. She is on oxygen 4 L. She is still hypoxic on room air. Evaluation of home oxygen. No chest pain. Oral thrush is improving. PHYSICAL EXAMINATION: Vital signs: Temperature is 98 degrees, pulse is 106, blood pressure is 150/88, 4 L nasal cannula 95%. HEENT: Within normal limits. Oral thrush is improving. Chest: Bilateral air entry. Decreased crackles and wheezing. Heart: Sounds are regular. INVESTIGATIONS: ABG on room air: pH is 7.46, pCO2 of 36, pO2 of 50, and this is on 21%. Sugar is 300. ProBNP 900. Triglycerides 147, cholesterol 147, LDL 83. Thyroid function tests were normal. Blood cultures are negative. Chest x-ray was improving. ASSESSMENT AND PLAN: 1. Acute exacerbation of chronic obstructive pulmonary disease. Quit smoking. Qualify home oxygen pO2 of 50 after getting better. Continue on 3 L. 2. Chronic obstructive pulmonary disease. The patient needs to be on bronchodilators and needs Breo and Spiriva. 3. Oral thrush, better. 4. Type 2 diabetes, on metformin. 5. If she is stable, will discharge in the morning. LEVEL OF DOCUMENTATION: 35 minutes. cc: David Granda MD
[2018-12-28] MEDS: HUMULIN R SUBQ SCH ×4 (06:34→20:18)
[2018-12-28] MEDS: NICODERM PATCH TD SCH (08:43)
[2018-12-28] MEDS: SODIUM CHLORIDE 0.9% INJ SCH ×2 (08:43→20:19)
[2018-12-28] MEDS: SOLU-MEDROL IV SCH (08:43)
[2018-12-28] MEDS: PEPCID IV SCH ×2 (08:43→20:19)
[2018-12-28] MEDS: MUCINEX PO SCH ×2 (08:43→20:19)
[2018-12-28] MEDS: GLUCOPHAGE PO SCH ×2 (08:43→16:22)
[2018-12-28] MEDS: BREO ELLIPTA 100/25 MCG INH INH SCH (10:00)
[2018-12-28] MEDS: DUONEB (A & A) INH PRN ×2 (10:00→16:36)
[2018-12-28] MEDS: SPIRIVA INH SCH (10:02)
[2018-12-28] MEDS: DIFLUCAN 100 MG/NS 100 MG/50 ML IVPB IV SCH ×2 (16:22→17:50)
[2018-12-28] MEDS: TESSALON PO PRN (16:22)
[2018-12-28] MEDS: LEVAQUIN 500 MG/D5W 500 MG/100 ML IVPB IV SCH ×2 (16:23→17:50)
[2018-12-28] MEDS: ROCEPHIN 1 GM in NS 50 ML IV SCH ×2 (16:23→17:49)
[2018-12-28] MEDS: LOVENOX SUBQ SCH (20:18)
--- NOTE | 2018-12-28 21:05 | PROGRESS NOTE ---
DATE: 12/28/2018 SUBJECTIVE: The patient complains of right ear pain. Still has shortness of breath. OBJECTIVE/PHYSICAL EXAMINATION: Vital Signs: Temperature is 97, pulse 89. Oxygen on 3 L 93%. HEENT: TMs are normal on both sides. Chest: Still wheezing. Heart: Sounds are regular. No obvious deficits. INVESTIGATION: PO2 is 50 on room air. ASSESSMENT AND PLAN: 1. Acute chronic obstructive pulmonary disease exacerbation with bronchitis. Decrease IV steroids. Continue on bronchodilators, IV antibiotics. 2. Deep venous thrombosis and gastrointestinal prophylaxis as per orders. 3. Diabetes, on metformin 850 p.o. b.i.d. 4. Oral thrush is improving. 5. History of Workman's Comp injury with right shoulder, left elbow and left knee surgery, stable. 6. The patient is not anxious to go home. We will keep her over the weekend. We will discharge on Monday. Continue present treatment. LEVEL OF DOCUMENTATION: Twenty-five minutes. cc: David Granda MD
[2018-12-28] MEDS: ZOFRAN IV PRN (21:57)
[2018-12-29] MEDS: HUMULIN R SUBQ SCH ×5 (06:21→20:45)
[2018-12-29] MEDS: BREO ELLIPTA 100/25 MCG INH INH SCH (07:58)
[2018-12-29] MEDS: SPIRIVA INH SCH (07:59)
[2018-12-29] MEDS: GLUCOPHAGE PO SCH ×2 (08:26→16:09)
[2018-12-29] MEDS: PEPCID IV SCH ×2 (08:26→20:45)
[2018-12-29] MEDS: SOLU-MEDROL IV SCH (08:26)
[2018-12-29] MEDS: NICODERM PATCH TD SCH (08:27)
[2018-12-29] MEDS: MUCINEX PO SCH ×2 (08:27→20:45)
--- NOTE | 2018-12-29 10:36 | PROGRESS NOTE ---
DATE: 12/29/2018 SUBJECTIVE: The patient says she is feeling better. OBJECTIVE: Vital Signs: Blood pressure is 138/68, respirations 18, pulse 68, temperature 98.1 degrees Fahrenheit. Oxygen saturation is 91% on 3 L. HEENT: She is normocephalic. EOMS intact. PERRLA. Throat clear. Lungs: Have rales in the bases bilaterally. No wheezing at this time. Heart: Regular rate and rhythm without murmurs, gallops, friction rubs. Abdomen: Soft. Active bowel sounds. No organomegaly or tenderness. Neurological: Exam intact grossly. ASSESSMENT: 1. Chronic obstructive pulmonary disease exacerbation. 2. Small infiltrates bilaterally, which have improved. PLAN: Continue treatment. cc: MD David Galicia Jr, MD
[2018-12-29] MEDS: ZOFRAN IV PRN ×2 (11:16→20:45)
[2018-12-29] MEDS: SODIUM CHLORIDE 0.9% INJ PRN (16:09)
[2018-12-29] MEDS: PHENERGAN IV PRN (16:09)
[2018-12-29] MEDS: ROCEPHIN 1 GM in NS 50 ML IV SCH (16:33)
[2018-12-29] MEDS: LEVAQUIN 500 MG/D5W 500 MG/100 ML IVPB IV SCH (20:44)
[2018-12-29] MEDS: DIFLUCAN 100 MG/NS 100 MG/50 ML IVPB IV SCH (20:44)
[2018-12-29] MEDS: LOVENOX SUBQ SCH (20:45)
[2018-12-30] MEDS: HUMULIN R SUBQ SCH ×4 (06:14→21:16)
[2018-12-30] MEDS: PEPCID IV SCH ×2 (09:04→21:17)
[2018-12-30] MEDS: GLUCOPHAGE PO SCH ×2 (09:04→16:11)
[2018-12-30] MEDS: SODIUM CHLORIDE 0.9% INJ SCH (09:04)
[2018-12-30] MEDS: MUCINEX PO SCH ×2 (09:04→21:17)
[2018-12-30] MEDS: NICODERM PATCH TD SCH (09:05)
[2018-12-30] MEDS: SOLU-MEDROL IV SCH (09:05)
[2018-12-30] MEDS: SPIRIVA INH SCH (09:26)
[2018-12-30] MEDS: BREO ELLIPTA 100/25 MCG INH INH SCH (09:26)
[2018-12-30] MEDS: DUONEB (A & A) INH PRN ×2 (09:26→15:23)
--- NOTE | 2018-12-30 13:48 | PROGRESS NOTE ---
DATE: 12/30/2018 SUBJECTIVE: The patient says she is feeling better. Her breathing seems to be doing better. OBJECTIVE: Blood pressure is 142/78, respirations 16, pulse 70, temperature 97.7 degrees Fahrenheit.HEENT: She is normocephalic. EOMS intact. PERRLA. Throat clear. Lungs: Actually sound clear to auscultation and percussion without rhonchi, rales or wheezes today, she said the nurse noted that she heard some crackles in the anterior chest the right side earlier, I did not hear those at this time. Heart: Regular rate and rhythm without murmurs, gallops, friction rubs. Abdomen: Soft. Active bowel sounds. No organomegaly or tenderness. Neurological: Intact grossly. ASSESSMENT: 1. Chronic obstructive pulmonary disease exacerbation. 2. Small infiltrates bilaterally which previously improved. PLAN: We will get a chest x-ray today as she has not had one for several days and continue current treatment. cc: MD David Galicia Jr, MD
--- NOTE | 2018-12-30 13:56 | Diag Imaging Result Doc PS360 ---
CHEST-2 VIEWS - 12/30/2018 INDICATION: pleural eff COMPARISON: 12/26/2018 FINDINGS: Stable mild cardiomegaly. No infiltrates or edema. No pneumothorax or pleural effusion. IMPRESSION: Continued improvement from prior. Electronically signed by Constantin Rogers 12/30/2018 1:54 PM
[2018-12-30] MEDS: SODIUM CHLORIDE 0.9% INJ PRN (16:11)
[2018-12-30] MEDS: ROCEPHIN 1 GM in NS 50 ML IV SCH ×2 (16:11→16:21)
[2018-12-30] MEDS: DIFLUCAN 100 MG/NS 100 MG/50 ML IVPB IV SCH (21:17)
[2018-12-30] MEDS: LOVENOX SUBQ SCH (21:17)
[2018-12-30] MEDS: LEVAQUIN 500 MG/D5W 500 MG/100 ML IVPB IV SCH (21:17)
[2018-12-30] MEDS: ZOFRAN IV PRN (21:34)
[2018-12-31] MEDS: HUMULIN R SUBQ SCH ×2 (06:34→10:57)
[2018-12-31] MEDS ORDERED: PNEUMOVAX 23 IM ONE (07:53)
[2018-12-31] MEDS: PEPCID IV SCH (08:28)
[2018-12-31] MEDS: GLUCOPHAGE PO SCH (08:28)
[2018-12-31] MEDS: MUCINEX PO SCH (08:28)
[2018-12-31] MEDS: SOLU-MEDROL IV SCH (08:28)
[2018-12-31] MEDS: NICODERM PATCH TD SCH (08:28)
[2018-12-31 11:47] VITALS: BP 154/93
--- NOTE | 2019-01-01 22:40 | DISCHARGE SUMMARY ---
ADMISSION DATE: 12/22/2018 DISCHARGE DATE: 12/31/2018 DISCHARGING DIAGNOSIS: 1. Acute respiratory failure due to chronic obstructive pulmonary disease exacerbation with right upper lobe pneumonia. 2. Oral thrush due to uncontrolled diabetes. 3. Metabolic syndrome. 4. Hyperlipidemia. 5. History of kidney stones, acid reflux disease, and recent workman's compensation related injuries, subsequently status post left knee replacement, left elbow surgery, and right shoulder replacement. PROCEDURES: Noninvasive ventilatory support. BRIEF HISTORY: Please see the H and P that was done on 12/22/2018. In brief, she is a 58-year- old white female who was not seen in my office since 2013, came in with shortness of breath, mental confusion, cough, wheezing, hypoxemia. The patient also had significant oral thrush. The patient continues to smoke. HOSPITAL COURSE: 1. Acute respiratory failure due to underlying COPD and hypoxemia. Nicotine cessation program was given. The patient was given BiPAP and subsequently placed on the Ventimask and slowly weaned off. She was markedly bronchospastic with crackles in the right upper lobe with productive cough. The patient was given oxygen, bronchodilators, IV steroids, IV antibiotics, and followup chest x-ray is improved. The patient is still hypoxic, qualified home oxygen for 2 L. 2. Nicotine cessation program as discussed. 3. Oral thrush. The patient was given IV Diflucan which is much improved. 4. Uncontrolled diabetes due to noncompliance. A1c is 8.1. The patient was given metformin along with B12 tablets and sliding scale with insulin coverage. 5. The patient has a recent workman's compensation injury under the care of Workman's Comp Disability. The patient has been referred to [facility] for maintenance care. LABORATORY AND IMAGING STUDIES: Labs at the time of discharge as follows. ABG: pH is 7.46, pCO2 of 36, pO2 of 50 on room air. Troponin was normal. ProBNP 972. CK was normal. Triglycerides 187, cholesterol 147, LDL 83, HDL 25. Thyroid function tests were normal. Sodium 140, potassium 4.2, BUN 12, creatinine 0.6, glucose 165. A1c 8.2. Blood cultures were negative. Chest x-ray on 12/30/2018: Significant improvement of infiltrates. EKG: Normal sinus, nothing acute. DISCHARGING INSTRUCTIONS: 1. Pneumococcal vaccine 23 was given 12/31/2018. 2. Oxygen 2 L. 3. Breo 100/25 one puff daily. 4. Levaquin 500 daily for 7 days. 5. Spiriva 1 puff daily. 6. Nicotine patches as directed. 7. Metformin 850 p.o. b.i.d. 8. Albuterol and Atrovent nebulizers q.6 as needed. 9. Quit smoking. 10. Follow up in my office in 2 weeks as well as maintenance care referred to the [facility]. cc: David Granda MD
== END 2018-12-31 13:43 | disposition home or self-care (01) | DRG 193 ==
LOC: ED 13:54 → 3S 17:03
PROVIDERS: ADMIT Internal Medicine; ATTEND Internal Medicine
CPT/HCPCS: 71010; 71020; 71045; 71046; 80048; 80053; 80061; 81001; 82550; 82553; 82805; 82948; 83036; 83605; 83735; 83880; 84439; 84443; 84484; 85025; 85379; 85610; 85730; 87040; 90732; 93005; 93010; 94640; 94761; 96365; 99285; A9270; J0696; J1450; J1650; J1956; J2405; J2550; J2920; J2930; J7030; S0028; XXXXX